=== PATIENT | female | born 1960 | race Caucasian/White ===

== ENCOUNTER 2018-12-17 11:38 | Emergency (ER) | payer OTHER ==
[~2018-12-17] VITALS: Ht 157.5 cm; Wt 84.8 kg
[2018-12-17 12:13] VITALS: BP 114/78
--- NOTE | 2018-12-17 12:18 | NUR ---
PT SENT TO ER LOBBY TO WAIT FOR AVAILABLE BED.
--- NOTE | 2018-12-17 15:50 | NUR ---
PATIENT AMBULATED TO BED #7
--- NOTE | 2018-12-17 16:00 | NUR ---
C/O R ELBOW PAIN X3 DAYS AFTER CARRYING IN GROCERIES ON THAT ARM. DENIES ANY OTHER INJURY. VISIBLE SWELLING TO R ELBOW, NO REDNESS/BRUSING NOTED. ROM LIMITED, PT CAN MOVE FINGERS. DENIES NUMBNESS/TINGLING TO R HAND. SKIN IS PINK/WARM/DRY; AAOX4 WITH EVEN AND STEADY GAIT; LUNGS CLEAR BL; HR EVEN AND REGULAR; VSS; PATIENT POSITIONED FOR COMFORT, GAVE A PILLOW TO REST R ARM ON; HOB ELEVATED; BEDRAILS UP X1; BED DOWN. ER MD MADE AWARE OF PT STATUS.
[2018-12-17] MEDS ORDERED: MORPHINE SULFATE 4 MG/ML SYR IM ONE (16:15)
[2018-12-17] MEDS ORDERED: KETOROLAC 60 MG/2 ML VIAL IM ONE (16:15)
--- NOTE | 2018-12-17 16:54 | NUR ---
PLACED A LONG ARM POSTERIOR SPLINT ON PT'S RIGHT ARM WITH HAND IN A NEUTRAL POSITION. SECURED SPLINT USING TWO LUIS A WRAPS AND FITTED THE PT WITH A SLING TO SUPPORT THE ARM.
[2018-12-17 18:27] VITALS: BP 105/75
--- NOTE | 2018-12-17 18:27 | NUR ---
Patient discharged with v/s stable. Written and verbal after care instructions given and explained. Patient alert, oriented and verbalized understanding of instructions. Ambulatory with steady gait. All questions addressed prior to discharge. ID band removed. Patient advised to follow up with PMD. Rx of TRAMADOL 50MG given. Patient educated on indication of medication including possible reaction and side effects. Opportunity to ask questions provided and answered.
== END 2018-12-17 18:27 | disposition home or self-care (01) ==
LOC: MED 11:38
DX: S52.121A Displaced fracture of head of right radius, initial encounter for closed fracture (principal); E78.00 Pure hypercholesterolemia, unspecified; X50.0XXA Overexertion from strenuous movement or load, initial encounter; Y93.01 Activity, walking, marching and hiking; Y92.89 Other specified places as the place of occurrence of the external cause; Y99.8 Other external cause status
CPT/HCPCS: 29105; 73080; 96372; 99283; J1885; J2270; Q0092

== ENCOUNTER 2020-12-27 16:48 | Emergency (ER) | payer OTHER ==
[~2020-12-27] VITALS: Ht 167.6 cm; Wt 83.5 kg
[2020-12-27 17:31] VITALS: BP 123/65
--- NOTE | 2020-12-27 17:32 | NUR ---
60 Y/O FEMALE C/O LEFT EYE SWELLING WITH CLEAR DISCHARGE WITH SOME BLURRY VISION [id number]. PT SAW PCP [id number] AGO AND WAS PRESCRIBED OFLOXACIN WITH MINIMAL RELIEF. PT STATES LEFT EYE PAIN 7/10 DESCRIBES BURNING NON-RADIATING. PT DENIES N/V, DENIES FEVER/CHILLS. DENIES PMH NKA
--- NOTE | 2020-12-27 17:58 | NUR ---
PA AT BEDSIDE EXAMINING PT
[2020-12-27] MEDS ORDERED: TETRACAINE HCL/PF 0.5% OPTH 4 ML BTL OP ONE (18:00)
[2020-12-27] MEDS ORDERED: FLUORESCEIN OPTH STRIP 1 MG OP ONE (18:00)
[2020-12-27] MEDS ORDERED: TOMOMETER 1 DEV DEV MC ONE (18:04)
--- NOTE | 2020-12-27 18:17 | NUR ---
PA AT BEDSIDE PERFORMING PROCEDURE
--- NOTE | 2020-12-27 19:26 | NUR ---
REPORT RECEIVED FROM MON[place]NA STALEY FOR CHANGE OF SHIFT REPORT.
--- NOTE | 2020-12-27 19:26 | NUR ---
REPORT GIVEN TO [place] CANDELARIA. TRANSFER OF CARE AT THIS TIME.
[2020-12-27 19:48] VITALS: BP 129/85
--- NOTE | 2020-12-27 19:48 | NUR ---
Patient to be transferred to [facility] ER. Is being transferred due to HIGHER LEVEL OF CARE. Receiving facility has accepting physician and available space, DR. WALSH. ER physician has signed transfer form. Patient or responsible constitution party has agreed to transfer and signed form. Patient belongings inventoried and will be sent with patient. Copy of nursing notes, lab reports, EKG, Physicians Orders and X-rays to be sent with patient. Report called to [place] ROD at receiving facility. [facility] ambulance service has been called for transfer. ETA is [id number].
== END 2020-12-27 19:48 | disposition home or self-care (01) ==
LOC: MED 16:48
DX: H16.002 Unspecified corneal ulcer, left eye (principal)
CPT/HCPCS: 99283